=== PATIENT | female | born 1960 | race Caucasian/White ===

== ENCOUNTER → 2017-12-08 | Outpatient (CLI) | payer OTHER ==
[2017-12-08] MEDS: REGADENOSON 0.4 MG/5 ML DISP.SYRIN. IV (10:09)
== END | disposition home or self-care (01) ==
LOC: NM 08:45
DX: Z01.818 Encounter for other preprocedural examination (principal); I73.9 Peripheral vascular disease, unspecified; I31.3 Pericardial effusion (noninflammatory); J44.9 Chronic obstructive pulmonary disease, unspecified; I10 Essential (primary) hypertension; R06.09 Other forms of dyspnea; Z87.891 Personal history of nicotine dependence
CPT/HCPCS: 78452; 93017; 93306; 96374; 96375; 96376; A9500; J2785

== ENCOUNTER 2017-12-16 06:13 | Outpatient (CLI) | payer OTHER ==
[2017-12-16] MEDS ORDERED: IODIXANOL 320 MG/ML 100 ML VIAL. (07:07)
[2017-12-16] MEDS ORDERED: LIDOCAINE 2% 20 ML VIAL. (07:08)
[2017-12-16 07:22] LABS: HEMATOCRIT 39.1 % (36.0-47.0); HEMOGLOBIN 13.1 g/dL (12.0-15.5); MEAN CORPUSCULAR HEMOGLOBIN 31 pg (25-35); MEAN CORPUSCULAR HGB CONC 34 g/dL (31-37); MEAN CORPUSCULAR VOLUME 93 fL (79-100); PLATELET COUNT 157 x10^3/uL (140-400); RED BLOOD COUNT 4.18 x10^6/uL (3.50-5.40); RED CELL DISTRIBUTION WIDTH 13.9 % (11.5-14.5)
[2017-12-16 07:30] LABS: ANION GAP 6 (6-14); BLOOD UREA NITROGEN 13 mg/dL (7-20); CALCIUM 8.5 mg/dL (8.5-10.1); CARBON DIOXIDE 30 mmol/L (21-32); CHLORIDE 106 mmol/L (98-107); CREATININE 0.9 mg/dL (0.6-1.0); GLUCOSE 100 mg/dL (70-99); POTASSIUM 3.8 mmol/L (3.5-5.1); SODIUM 142 mmol/L (136-145)
[2017-12-16 07:32] LABS: PARTIAL THROMBOPLASTIN TIME 27 SEC (24-38); PROTHROMBIN TIME PATIENT 13.1 SEC (11.7-14.0)
[2017-12-16] MEDS ORDERED: HEPARIN for IV BOLUS 10,000 UNIT/10 ML VIAL. (07:46)
[2017-12-16] MEDS ORDERED: MIDAZOLAM HCL/PF 2 MG/2 ML VIAL. (07:46)
[2017-12-16] MEDS ORDERED: fentaNYL PF VIAL 100 MCG/2 ML VIAL (07:46)
[2017-12-16] MEDS: LIDOCAINE 2% 20 ML VIAL. IJ (08:42)
[2017-12-16] MEDS: MIDAZOLAM HCL/PF 2 MG/2 ML VIAL. IV (08:43)
[2017-12-16] MEDS: fentaNYL PF VIAL 100 MCG/2 ML VIAL IV (08:43)
[2017-12-16] MEDS: IODIXANOL 320 MG/ML 100 ML VIAL. IART (08:43)
[2017-12-16] MEDS ORDERED: IV 1/2 NORMAL SALINE 1,000 ML IV (08:58)
[2017-12-16] MEDS ORDERED: NITROGLYCERIN SUBLINGUAL 0.4 MG BOTTLE OF 25. SL (09:00)
[2017-12-16] MEDS ORDERED: ONDANSETRON PF 4 MG/2 ML VIAL. (11:22)
[2017-12-16] MEDS: ONDANSETRON PF 4 MG/2 ML VIAL. IV (11:30)
== END 2017-12-16 12:35 | disposition home or self-care (01) ==
LOC: CCL 06:13
DX: I70.212 Atherosclerosis of native arteries of extremities with intermittent claudication, left leg (principal); I10 Essential (primary) hypertension; J44.9 Chronic obstructive pulmonary disease, unspecified; F17.210 Nicotine dependence, cigarettes, uncomplicated; Z79.82 Long term (current) use of aspirin; Z79.899 Other long term (current) drug therapy; Z98.890 Other specified postprocedural states; Z82.49 Family history of ischemic heart disease and other diseases of the circulatory system; Z83.6 Family history of other diseases of the respiratory system
CPT/HCPCS: 36246; 36415; 75630; 75716; 80048; 85027; 85610; 85730; 99152; 99153; C1769; C1771; C1892; J1644; J2250; J2405; J3010